=== PATIENT | female | born 1955 | race Caucasian/White ===

== ENCOUNTER → 2024-02-25 13:39 | Outpatient (REF) | payer MEDICARE, SELFPAY | LOC: RAD 13:39 | PROVIDERS: ATTENDING PHYSICIAN Student in an Organized Health Care Education/Training Program | DX: Z00.00 Encounter for general adult medical examination without abnormal findings (principal); M81.0 Age-related osteoporosis without current pathological fracture; Z82.49 Family history of ischemic heart disease and other diseases of the circulatory system | CPT/HCPCS: 75571 ==

== ENCOUNTER → 2024-04-23 14:55 | Outpatient (REF) | payer MEDICARE, SELFPAY | LOC: WDC 14:55 | PROVIDERS: ATTENDING PHYSICIAN Student in an Organized Health Care Education/Training Program | DX: Z12.31 Encounter for screening mammogram for malignant neoplasm of breast (principal) | CPT/HCPCS: 77063; 77067 ==

== ENCOUNTER → 2024-09-18 12:51 | Outpatient (REF) | payer MEDICARE, SELFPAY | LOC: RAD 12:51 | PROVIDERS: REFERRING PHYSICIAN Student in an Organized Health Care Education/Training Program | DX: R53.83 Other fatigue (principal); Z86.018 Personal history of other benign neoplasm; R63.4 Abnormal weight loss | CPT/HCPCS: 76830; 76856 ==

== ENCOUNTER → 2025-05-31 16:24 | Outpatient (REF) | payer MEDICARE, SELFPAY ==
[2025-05-31 17:57] LABS: ALT (SGPT) 21 U/L (0-35); AST (SGOT) 25 U/L (14-36); Albumin 4.7 g/dl (3.5-5.0); Alkaline Phosphatase 46 U/L (38-126); Blood Urea Nitrogen 14 mg/dl (7-17); Calcium 9.7 mg/dl (8.4-10.2); Carbon Dioxide 30 mmol/L (22-30); Chloride 102 mmol/L (98-107); Glucose 88 mg/dl (70-99); Potassium 4.1 mmol/L (3.5-5.1); Sodium 139 mmol/L (135-145); Total Protein 7.2 g/dl (6.3-8.2); eGFR > 60.00
== END ==
LOC: REG 16:24
PROVIDERS: ATTENDING PHYSICIAN Student in an Organized Health Care Education/Training Program
DX: R91.1 Solitary pulmonary nodule (principal)
CPT/HCPCS: 36415; 80053

== ENCOUNTER → 2025-06-01 10:39 | Outpatient (REF) | payer MEDICARE, SELFPAY | LOC: WDC 10:39 | PROVIDERS: ATTENDING PHYSICIAN Student in an Organized Health Care Education/Training Program | DX: R91.1 Solitary pulmonary nodule (principal); M81.0 Age-related osteoporosis without current pathological fracture; Z00.00 Encounter for general adult medical examination without abnormal findings; Z12.31 Encounter for screening mammogram for malignant neoplasm of breast | CPT/HCPCS: 71260; 77063; 77067; 77080; Q9967 ==